=== PATIENT | female | born 1935 | race Caucasian/White ===

== ENCOUNTER 2016-12-06 10:16 | Outpatient (CLI) ==
[2016-06-07 14:57] VITALS: BMI 28.1
== END 2016-12-06 10:17 | disposition home or self-care (01) ==
LOC: AMBL 10:16
PROVIDERS: ATTEND Family Medicine
DX: Z04.1 Encounter for examination and observation following transport accident (principal)

== ENCOUNTER 2018-01-10 09:46 | Emergency (ER) | payer OTHER ==
[2018-01-10 09:57] VITALS: BP 217/74; TEMP 96.7; BMI 30.2
--- NOTE | 2018-01-10 10:03 | ED.PDOC ---
General ED Provider: Dr. JOSE ALFARO MD Chief Complaint: Fall Stated Complaint: i fell at home about 2 weeks ago, christine in ribs then, now having pain in L hip and L ankle, but i am able to walk on them at home Time Seen by Physician: 10:00 Mode of Arrival: Wheelchair Information Source: Patient Exam Limitations: Clinical condition Primary Care Provider: JOSE GORMAN Nursing and Triage Documentation Reviewed and Agree: Yes Reviewed sepsis parameters & appropriate labs ordered?: Yes System Inflammatory Response Syndrome: Not Applicable Sepsis Protocol: For patient's 13 years and over: Temp is 96.8 and below OR 101 and greater Pulse >90 BPM Resp >20/minute Acutely Altered Mental Status Are patient's symptoms suggestive of a new infection, such as: -Pneumonia -Skin, Soft Tissue -Endocarditis -UTI -Bone, Joint Infection -Implantable Device -Acute Abdominal Infection -Wound Infection -Meningitis -Blood Stream Catheter Infection -Unknown Musculoskeletal Complaint Exam - Hip/Pelvis Complaint/Exam Location of Pain: Reports: Left Mechanism of Injury: Reports: Trauma Onset/Duration: few days but fell about 2 weeks ago Symptoms Are: Worse Initial Severity: None Current Severity: Moderate Location: Reports: Discrete Character: Reports: Aching Aggravating: Reports: Movement, Weight bearing (but able to walk on it at home) Alleviating: Reports: Position Able to Bear Weight: Yes Septic Arthritis Risk Factors: Reports: None Related Surgical History: Reports: None Pelvis Palpation: Stable Tenderness: Present: Left, Greater Trochanter Range of Motion Limited In: Present: Flexion, Abduction, External rotation NV Bundle Intact Distal to Injury: Yes - Ankle/Foot Complaint/Exam Location of Injury: Reports: Left Mechanism of Injury: Reports: Trauma Symptoms Are: Reports: Still present, Worse Onset of Pain: Reports: Days Initial Severity: None Current Severity: Moderate Location: Reports: Discrete Character: Reports: Aching Alleviating: Reports: Position Aggravating: Reports: Movement, Weight bearing Able to Bear Weight: Yes Associated Signs and Symptoms: Reports: Swelling Gout Risk Factors: Reports: >40 years old, HTN Related Surgical History: Reports: Right, Ankle, Other Orthopedic Surgery Achilles Tendon Abnormality: No Tenderness: Present: Lateral malleolus Limited Range of Motion: Present: Inversion, Eversion, Dorsiflexion Review of Systems - Review Of Systems Constitutional: Reports: No symptoms Eyes: Reports: No symptoms Ears, Nose, Mouth, Throat: Reports: No symptoms Respiratory: Reports: No symptoms Cardiac: Reports: No symptoms GI: Reports: No symptoms : Reports: No symptoms Musculoskeletal: Reports: Joint pain Skin: Reports: No symptoms Neurological: Reports: No symptoms Endocrine: Reports: No symptoms Hematologic/Lymphatic: Reports: No symptoms All Other Systems: Reviewed and Negative Past Medical History - Past Medical History Previously Healthy: Yes Endocrine: Reports: Hypothyroid Cardiovascular: Reports: Hypertension Respiratory: Reports: COPD Hematological: Reports: None Gastrointestinal: Reports: None Genitourinary: Reports: CKD Neuro/Psych: Reports: None Musculoskeletal: Reports: Arthritis Cancer: Reports: None Last Menstrual Period: n/a - Surgical History General Surgical History: Reports: Orthopedic (LEFT SHOULDER), Other ( 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) - Family History Family History: Reports: Unknown - Social History Smoking Status: Former smoker Hx Substance Use: No Alcohol Screening: None Physical Exam - Physical Exam Appearance: Ill-appearing Ill-appearing: None Pain Distress: Moderate Eyes: JOSE, EOMI, Conjunctiva clear ENT: Ears normal, Nose normal, Oropharynx normal Neck: Supple Respiratory: Airway patent, Breath sounds clear, Breath sounds equal, Respirations nonlabored Cardiovascular: RRR, Pulses normal, No rub, No murmur GI/: Soft, Nontender, No masses, Bowel sounds normal, No Organomegaly Musculoskeletal: Limited ROM (pain with all movement of L ankle and L hip), Limited strength Skin: Warm, Dry, Normal color Neurological: Sensation intact, Motor intact, Reflexes intact, Cranial nerves intact, Alert, Oriented Psychiatric: Affect appropriate, Mood appropriate Re-Evaluation - Re-Evaluation Time of Re-Evaluation: 11:55 Status: Improved Vital Signs Stable: Yes Appearance: NAD Lungs: Clear Skin: Warm and Dry Neuro: Alert and Oriented X3 CV: RRR Critical Care Note - Critical Care Note Total Time (mins): 0 Course - Course Orders, Labs, Meds: Orders Category Date Time Status Ketorolac Tromethamine [Toradol] MEDS 01/10/18 10:15 Discontinued 60 mg IM ONCE STA ANKLE, LEFT MIN 3 VIEWS Stat RADS 01/10/18 10:04 Completed HIP, LEFT 2 VIEWS Stat RADS 01/10/18 10:04 Completed Medications Discontinued Medications Generic Name Dose Route Start Last Admin Trade Name Freq PRN Reason Stop Dose Admin Ketorolac Tromethamine 60 mg 01/10/18 10:15 01/10/18 10:33 Toradol IM 01/10/18 10:16 60 mg ONCE STA Administration Vital Signs: Temp Pulse Resp BP Pulse Ox 01/10/18 09:47 96.7 F L 65 20 217/74 H 90 L Departure - Departure Time of Disposition: 12:10 Disposition: HOME SELF-CARE Discharge Problem: Sprain and strain Contusion of left hip Qualifiers: Encounter type: initial encounter Qualified Code(s): S70.02XA - Contusion of left hip, initial encounter Condition: Good Pt referred to PMD for follow-up: Yes IPMP verified?: No Allergies/Adverse Reactions: Allergies codeine Adverse Reaction (Verified 01/10/18 09:52) midazolam HCl [From Versed] Adverse Reaction (Verified 01/10/18 09:52) Penicillins Adverse Reaction (Verified 01/10/18 09:52) vancomycin Adverse Reaction (Verified 01/10/18 09:52) Home Medications: Ambulatory Orders Aspirin [Aspirin Chewable] 81 mg PO DAILY 04/25/13 Iron 65 mg PO DAILY 04/25/13 Levothyroxine Sodium [Synthroid] 112 mcg PO QDAC 04/25/13 Lisinopril [Zestril] 20 mg PO DAILY 04/25/13 Lovastatin [Mevacor] 20 mg PO DAILY 04/25/13 Montelukast Sodium [Singulair] 10 mg PO DAILY 04/25/13 Furosemide [Lasix Tab] 20 mg PO QDAC 05/08/13 Ascorbate Calcium [Vitamin C] 500 mg PO DAILY 12/24/13 Donepezil HCl [Aricept] 10 mg PO DAILY 12/24/13 Multivitamin 1 cap PO DAILY 12/27/13 Potasssium Gluconate 20 meq PO EVERY OTHER DAY 12/27/13 Cholecalciferol (Vitamin D3) [Vitamin D3] 3,000 unit PO DAILY 01/10/18
[2018-01-10] MEDS ORDERED: TORADOL IM STA (10:15)
--- NOTE | 2018-01-10 11:33 | DI ---
EXAM: Radiographs, left hip HISTORY: Left hip pain following a fall 2 weeks prior. Initial presentation. COMPARISON: Pelvic CT 06/07/2016. TECHNIQUE: Two views. FINDINGS: Underpenetration noted due to patient's body habitus . Bone mineralization is decreased. There is no fracture or dislocation. Appears to be at least moderate left hip joint space narrowing . No focal soft tissue abnormality is seen. IMPRESSION: No fracture or dislocation.
--- NOTE | 2018-01-10 11:34 | DI ---
EXAM: Three views of the left ankle HISTORY: Fall at home 2 weeks prior. COMPARISON: Right ankle x-rays 01/22/2014 FINDINGS: There is soft tissue swelling. There is mild narrowing of the left ankle joint space. The re is minimal cortical irregularity of the tip of the fibula seen best on oblique view with degenerat eamon disease and osteophyte formation in this area. No dislocation is identified. The structures in the hind foot are unremarkable. IMPRESSION: 1. There is minimal cortical irregularity of the tip of the fibula which may represent degenerative change versus subtle fracture. There is associated severe soft tissue swelling. 2. 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
== END 2018-01-10 12:22 | disposition home or self-care (01) ==
LOC: ED 09:46
DX: S70.02XA Contusion of left hip, initial encounter (principal); S93.401A Sprain of unspecified ligament of right ankle, initial encounter; W19.XXXA Unspecified fall, initial encounter
CPT/HCPCS: 99283

== ENCOUNTER 2019-03-10 14:23 | Outpatient (CLI) | END 2019-03-10 14:24 | disposition home or self-care (01) | LOC: CAR 14:23 | PROVIDERS: ATTEND Family Medicine | DX: R00.1 Bradycardia, unspecified (principal) | CPT/HCPCS: 93005; 93010 ==

== ENCOUNTER 2019-04-15 09:13 | Outpatient (CLI) | payer OTHER ==
--- NOTE | 2019-04-15 09:46 | DI ---
EXAM: CHEST FRONTAL AND LATERAL VIEWS HISTORY: Hypoxia, chronic obstructive pulmonary disease. COMPARISON: 06/11/2016 FINDINGS: Heart size remains within normal limits. Moderate atherosclerotic disease. There is diff use, chronic appearing interstitial accentuation. Lungs are hyperinflated and there is relative luce ncy of the lung zones suggesting pulmonary emphysema. No acute infiltrates are seen. No vascular co ngestion. There is no consolidation, visible pleural fluid or pneumothorax. Bones reveal no acute f racture. IMPRESSION: Chronic obstructive pulmonary disease. No acute cardiopulmonary process.
== END 2019-04-15 09:14 | disposition home or self-care (01) ==
LOC: RAD 09:13
PROVIDERS: ATTEND Family Medicine
DX: R09.02 Hypoxemia (principal); J44.9 Chronic obstructive pulmonary disease, unspecified